=== PATIENT | male | born 1970 | race Caucasian/White ===

== ENCOUNTER 2024-10-26 11:07 | Emergency (ER) | payer OTHER ==
--- OUTSIDE RECORDS SUMMARY | 2024-10-26 11:11 | XMS REPORT | Continuity of Care Document ---
Author Name Unknown Address [address] [place] [address] [facility] Address [address] [place] [address] Care Team Providers Care Blueprint Tracer Name Role Phone Tuyet Salvador Primary Care Physician [phone] Tuyet Salvador Attending Clinician [phone] Doctor Unassigned, [place] Attending Clinician U navailable TUYET ARMANDO Attending Clinician Unavailable Lab, Ang - Db Attending Clinician Unavailable Tuyet Salvador Attending Clinician [phone] NurseEdilberto Attending Clinician Unavailable Rajendra Miranda MD Attending Clinician [phone] RAJENDRA MIRANDA Attending Clinician Unavaila ble Laurie Bnoe Attending Clinician [phone] LAURIE NORRIS Attending Clinician Unavailjamila anaya [facility] Attending Clinician Unavailable YECENIA ROSE Attending Clinician Unavailable MIRZA CASTILLO Attending Clinician UnavailCARL Talbot Attending Clinician Unavailable TONY ACOSTA Admitting Clinician Unavailable Payers Payer Name Policy Type Policy Number Effective Date Expirati on Date Source [place] [id number] 2019 00:00:00 MEDICAID SSI PENDING PENDING 2019 00:00:00 Problems Condition Name Condition Details Condition Category Status Onset Date Resolution Date Last Treatment Date Treating Clinician Comments Source Decompensa ivone hepatic cirrhosis Decompensa ivone hepatic cirrhosis Disease Active 08-02 00:00: 00 [facility] Vision loss, bilateral Vision loss, bilateral Disease Active 08-02 00:00: 00 [facility] Gastrointe stinal hemorrhage , unspecifie d gastrointe stinal hemorrhage type Gastrointe stinal hemorrhage , unspecifie d gastrointe stinal hemorrhage type Disease Active 08-02 00:00: 00 [facility] Nutritiona l deficiency Nutritiona l deficiency Disease Active 08-02 00:00: 00 [facility] History of alcohol abuse History of alcohol abuse Disease Active 08-02 00:00: 00 [facility] Smoker Smoker Disease Active 08-02 00:00: 00 [facility] 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 Added automatic ally from request for surgery [id number] [facility] Obesity (BMI 30-39.9) Obesity (BMI 30-39.9) Disease Resolve d 2018-07 230 00:00: 00 2019-08-02 00:00:00 2019-08-02 14:49:49 [facility] Allergies, Adverse Reactions, Alerts Allergy Name Allergy Type Status Severity Reaction(s) Onset Date Inactive Date Treating Clinician Comments Source FERROUS SULFATE DRUG INGREDI Active High ITCHING 03 00:00: 00 [facility] Ferrous Sulfate Propensi ty to adverse reaction s Active Itching 01-19 00:00: 00 [facility] SULFA (SULFONA MIDE ANTIBIOT ICS) Drug Class Active Rash 08-02 00:00: 00 [facility] Sulfa (Sulfona mide Antibiot ics) Propensi ty to adverse reaction s Active Rash 2020-0 1-14 00:00: 00 [facility] Sulfa (Sulfona mide Antibiot ics) Propensi ty to adverse reaction s Active Rash 2019-0 1-14 00:00: 00 [facility] Social History Social Habit Start Date Stop Date Quantity Comments Source Gender identity [facility] History of tobacco use Cigar Smoker [facility] History SDOH Alcohol Frequency [facility] History SDOH Alcohol Binge [facility] History SDOH Food Scarcity [facility] History SDOH Transport Non-Med [facility] History of Social function 2023-03-20 00:00:00 2023-03-20 00:00:00 [facility] Cigarettes smoked current (pack per day) - Reported 2023-03-20 00:00:00 2023-03-20 00:00:00 [facility] Cigarette pack-years 2023-03-20 00:00:00 2023-03-20 00:00:00 [facility] Tobacco use and exposure 2023-03-20 00:00:00 2023-03-20 00:00:00 Smokeless tobacco non-user [facility] Alcoholic beverage intake 2023-03-20 00:00:00 2023-03-20 00:00:00 .57 /d [facility] Tobacco Comment 2023-03-20 00:00:00 2023-03-20 00:00:00 20 cigars come in pack [facility] Exposure to SARS-CoV-2 (event) 2021-04-24 00:00:00 2021-05-24 09:09:00 Not sure [facility] Alcohol intake 2020-01-20 00:00:00 2020-01-20 00:00:00 .57 /d [facility] History SDOH Alcohol Std Drinks 2019-07-17 00:00:00 2019-07-17 00:00:00 2 [facility] Alcohol Comment 2019-07-17 00:00:00 2019-07-17 00:00:00 daily drinker [facility] History SDOH Food Worry 2019-07-17 00:00:00 2019-07-17 00:00:00 1 [facility] History SDOH Transport Med 2019-07-17 00:00:00 2019-07-17 00:00:00 2 [facility] Sex assigned at 1970 00:00:00 1970 00:00:00 [facility] Smoking Status Start Date Stop Date Source Smokes tobacco daily 2023-03-20 00:00:00 [facility] Medications Ordered Medication Name Filled Medication Name Start Date Stop Date Current Medication? Ordering Clinician Indication Dosage Frequency Signature (SIG) Comments Components Source foLIC acid 1 mg tablet 2020-07 00:00: 00 Yes [id number] 1mg Take 1 tablet by mouth daily. [facility] thiamine 100 mg tablet 2020-07 00:00: 00 Yes [id number] 100mg Take 1 tablet by mouth daily. [facility] pantoprazol e 40 mg EC tablet 2020-07 00:00: 00 Yes [id number] 40mg Take 1 tablet by mouth daily. [facility] MV,Ca,Min-I darvin-FA-Lyco pene (CENTRUM MEN) 8 mg iron- 200 mcg-600 mcg Tab 09-27 00:00: 00 Yes [id number] 1{tbl} Take 1 tablet by mouth daily. [facility] MV,Ca,Min-I darvin-FA-Lyco pene (CENTRUM MEN) 8 mg iron- 200 mcg-600 mcg Tab 09-27 00:00: 00 Yes [id number] 1{tbl} Take 1 tablet by mouth daily. [facility] foLIC acid 1 mg tablet 09-27 00:00: 00 04-23 00:00 :00 No [id number] 1mg Take 1 tablet by mouth daily. [facility] pantoprazol e 40 mg EC tablet 09-27 00:00: 00 04-23 00:00 :00 No [id number] 40mg Take 1 tablet by mouth daily. [facility] thiamine 100 mg tablet 09-27 00:00: 00 04-23 00:00 :00 No [id number] 100mg Take 1 tablet by mouth daily. [facility] furosemide 40 mg tablet 03-28 00:00: 00 04-23 00:00 :00 No [id number] 40mg Take 1 tablet by mouth daily. [facility] spironolact one 100 mg tablet 03-28 00:00: 00 04-23 00:00 :00 No [id number] 100mg Take 1 tablet by mouth daily. [facility] foLIC acid 1 mg tablet 01-30 00:00: 00 03-27 00:00 :00 No [id number] 1mg Take 1 tablet by mouth daily. [facility] furosemide 40 mg tablet 01-30 00:00: 00 03-27 00:00 :00 No [id number] 40mg Take 1 tablet by mouth daily. [facility] pantoprazol e 40 mg EC tablet 01-30 00:00: 00 03-27 00:00 :00 No [id number] 40mg Take 1 tablet by mouth daily. [facility] thiamine 100 mg tablet 01-30 00:00: 03-27 00:00 :00 No [id number] 100mg Take 1 tablet by mouth daily. [facility] spironolact one 100 mg tablet 01-30 00:00: 00 03-27 00:00 :00 No [id number] 100mg Take 1 tablet by mouth daily. [facility] MV,Ca,Min-I darvin-FA-[place] pene (CENTRUM MEN) 8 mg iron- 200 mcg-600 mcg Tab 1-28 00:00: 00 03-27 00:00 :00 No [id number] 1{tbl} Take 1 tablet by mouth daily. [facility] Immunizations Ordered Immunization Name Filled Immunization Name Date Status Comments Source HEP B, Adult Dosage 2021-05-24 00:00:00 Completed [facility] HEP B, Adult Dosage 2021-05-24 00:00:00 Completed [facility] HEP B, Adult Dosage 2021-05-24 00:00:00 Completed [facility] HEP B, Adult Dosage 2021-05-24 00:00:00 Completed [facility] HEP B, Adult Dosage 2021-05-24 00:00:00 Completed [facility] HEPLISAV HEP B, ADULT 2 DOSE, IM 2021-04-23 00:00:00 Completed [facility] HEPLISAV HEP B, ADULT 2 DOSE, IM 2021-04-23 00:00:00 Completed [facility] HEPLISAV HEP B, ADULT 2 DOSE, IM 2021-04-23 00:00:00 Completed [facility] HEPLISAV HEP B, ADULT 2 DOSE, IM 2021-04-23 00:00:00 Completed [facility] HEPLISAV HEP B, ADULT 2 DOSE, IM 2021-04-23 00:00:00 Completed [facility] HEPLISAV HEP B, ADULT 2 DOSE, IM 2021-04-23 00:00:00 Completed [facility] HEPLISAV HEP B, ADULT 2 DOSE, IM 2021-04-23 00:00:00 Completed [facility] SARS-COV-2 COVID-19 PFIZER VACCINE 2020-10-26 00:00:00 Completed [facility] SARS-COV-2 COVID-19 PFIZER VACCINE 2020-10-26 00:00:00 Completed [facility] SARS-COV-2 COVID-19 PFIZER VACCINE 2020-10-26 00:00:00 Completed [facility] SARS-COV-2 COVID-19 PFIZER VACCINE 2020-10-26 00:00:00 Completed [facility] SARS-COV-2 COVID-19 PFIZER VACCINE 2020-10-26 00:00:00 Completed [facility] SARS-COV-2 COVID-19 PFIZER VACCINE 2020-10-26 00:00:00 Completed [facility] SARS-COV-2 COVID-19 PFIZER VACCINE 2020-10-26 00:00:00 Completed [facility] SARS-COV-2 COVID-19 PFIZER VACCINE 2020-10-05 00:00:00 Completed [facility] SARS-COV-2 COVID-19 PFIZER VACCINE 2020-10-05 00:00:00 Completed [facility] SARS-COV-2 COVID-19 PFIZER VACCINE 2020-10-05 00:00:00 Completed [facility] SARS-COV-2 COVID-19 PFIZER VACCINE 2020-10-05 00:00:00 Completed [facility] SARS-COV-2 COVID-19 PFIZER VACCINE 2020-10-05 00:00:00 Completed [facility] SARS-COV-2 COVID-19 PFIZER VACCINE 2020-10-05 00:00:00 Completed [facility] SARS-COV-2 COVID-19 PFIZER VACCINE 2020-10-05 00:00:00 Completed [facility] HEPLISAV HEP B, ADULT 2 DOSE, IM 2020-01-20 00:00:00 Completed [facility] Hepatitis A Adult 2020-01-20 00:00:00 Completed [facility] HEPLISAV HEP B, ADULT 2 DOSE, IM 2020-01-20 00:00:00 Completed [facility] Hepatitis A Adult 2020-01-20 00:00:00 Completed [facility] HEPLISAV HEP B, ADULT 2 DOSE, IM 2020-01-20 00:00:00 Completed [facility] Hepatitis A Adult 2020-01-20 00:00:00 Completed [facility] HEPLISAV HEP B, ADULT 2 DOSE, IM 2020-01-20 00:00:00 Completed [facility] Hepatitis A Adult 2020-01-20 00:00:00 Completed [facility] HEPLISAV HEP B, ADULT 2 DOSE, IM 2020-01-20 00:00:00 Completed [facility] Hepatitis A Adult 2020-01-20 00:00:00 Completed [facility] HEPLISAV HEP B, ADULT 2 DOSE, IM 2020-01-20 00:00:00 Completed [facility] Hepatitis A Adult 2020-01-20 00:00:00 Completed [facility] HEPLISAV HEP B, ADULT 2 DOSE, IM 2020-01-20 00:00:00 Completed [facility] Hepatitis A Adult 2020-01-20 00:00:00 Completed Influenza Virus Vaccine Quad .5 mL IM 6+ MO 2019-07-22 00:00:00 Completed [facility] Pneumococcal Polysaccharide, PPSV23 (PNEUMOVAX) 2019-07-22 00:00:00 Completed [facility] Hepatitis A Adult 2019-07-22 00:00:00 Completed [facility] TDAP (ADACEL) VACCINE 2019-07-22 00:00:00 Completed [facility] HEPLISAV HEP B, ADULT 2 DOSE, IM 2019-07-22 00:00:00 Completed [facility] Influenza Virus Vaccine Quad .5 mL IM 6+ MO 2019-07-22 00:00:00 Completed [facility] Pneumococcal Polysaccharide, PPSV23 (PNEUMOVAX) 2019-07-22 00:00:00 Completed [facility] Hepatitis A Adult 2019-07-22 00:00:00 Completed [facility] TDAP (ADACEL) VACCINE 2019-07-22 00:00:00 Completed [facility] HEPLISAV HEP B, ADULT 2 DOSE, IM 2019-07-22 00:00:00 Completed [facility] Influenza Virus Vaccine Quad .5 mL IM 6+ MO 2019-07-22 00:00:00 Completed [facility] Pneumococcal Polysaccharide, PPSV23 (PNEUMOVAX) 2019-07-22 00:00:00 Completed [facility] Hepatitis A Adult 2019-07-22 00:00:00 Completed [facility] TDAP (ADACEL) VACCINE 2019-07-22 00:00:00 Completed [facility] HEPLISAV HEP B, ADULT 2 DOSE, IM 2019-07-22 00:00:00 Completed [facility] Influenza Virus Vaccine Quad .5 mL IM 6+ MO (FLUZONE/FLULAVAL/F LUARIX) 2019-07-22 00:00:00 Completed [facility] Pneumococcal Polysaccharide, PPSV23 (PNEUMOVAX) 2019-07-22 00:00:00 Completed [facility] Hepatitis A Adult 2019-07-22 00:00:00 Completed [facility] TDAP (ADACEL) VACCINE 2019-07-22 00:00:00 Completed [facility] HEPLISAV HEP B, ADULT 2 DOSE, IM 2019-07-22 00:00:00 Completed [facility] Influenza Virus Vaccine Quad .5 mL IM 6+ MO (FLUZONE/FLULAVAL/F LUARIX) 2019-07-22 00:00:00 Completed [facility] Pneumococcal Polysaccharide, PPSV23 (PNEUMOVAX) 2019-07-22 00:00:00 Completed [facility] Hepatitis A Adult 2019-07-22 00:00:00 Completed [facility] TDAP (ADACEL) VACCINE 2019-07-22 00:00:00 Completed [facility] HEPLISAV HEP B, ADULT 2 DOSE, IM 2019-07-22 00:00:00 Completed [facility] Influenza Virus Vaccine Quad .5 mL IM 6+ MO (FLUZONE/FLULAVAL/F LUARIX) 2019-07-22 00:00:00 Completed [facility] Pneumococcal Polysaccharide, PPSV23 (PNEUMOVAX) 2019-07-22 00:00:00 Completed [facility] Hepatitis A Adult 2019-07-22 00:00:00 Completed [facility] TDAP (ADACEL) VACCINE 2019-07-22 00:00:00 Completed [facility] HEPLISAV HEP B, ADULT 2 DOSE, IM 2019-07-22 00:00:00 Completed [facility] Influenza Virus Vaccine Quad .5 mL IM 6+ MO (FLUZONE/FLULAVAL/F LUARIX) 2019-07-22 00:00:00 Completed [facility] Pneumococcal Polysaccharide, PPSV23 (PNEUMOVAX) 2019-07-22 00:00:00 Completed Hepatitis A Adult 2019-07-22 00:00:00 Completed TDAP (ADACEL) VACCINE 2019-07-22 00:00:00 Completed HEPLISAV HEP B, ADULT 2 DOSE, IM 2019-07-22 00:00:00 Completed Influenza Virus Vaccine Quad .5 mL IM 6+ MO (FLUZONE/FLULAVAL/F LUARIX) Unknown Completed [facility] Pneumococcal Polysaccharide, PPSV23 (PNEUMOVAX) Unknown Completed [facility] Hepatitis A Adult Unknown Completed [facility] TDAP (ADACEL) VACCINE Unknown Completed [facility] HEPLISAV HEP B, ADULT 2 DOSE, IM Unknown Completed [facility] HEPLISAV HEP B, ADULT 2 DOSE, IM Unknown Completed [facility] SARS-COV-2 COVID-19 PFIZER VACCINE Unknown Completed [facility] Influenza Virus Vaccine Quad .5 mL IM 6+ MO (FLUZONE/FLULAVAL/F LUARIX) Unknown Completed [facility] Pneumococcal Polysaccharide, PPSV23 (PNEUMOVAX) Unknown Completed [facility]atitis A Adult Unknown [facility] Unknown Completed [facility] HEPLISAV HEP B, ADULT 2 DOSE, IM Unknown Completed [facility] HEPLISAV HEP B, ADULT 2 DOSE, IM Unknown Completed [facility] SARS-COV-2 COVID-19 PFIZER VACCINE Unknown Completed [facility] Influenza Virus Vaccine Quad .5 mL IM 6+ MO (FLUZONE/FLULAVAL/F LUARIX) Unknown Completed [facility] Pneumococcal Polysaccharide, PPSV23 (PNEUMOVAX) Unknown Completed [facility] Hepatitis A Adult Unknown [facility] (AD[facility]EL) VACCINE Unknown Completed [facility] HEPLISAV HEP B, ADULT 2 DOSE, IM Unknown Completed [facility] HEPLISAV HEP B, ADULT 2 DOSE, IM Unknown Completed [facility] SARS-COV-2 COVID-19 PFIZER VACCINE Unknown Completed [facility] Influenza Virus Vaccine Quad .5 mL IM 6+ MO (FLUZONE/FLULAVAL/F LUARIX) Unknown Completed [facility] Pneumococcal Polysaccharide, PPSV23 (PNEUMOVAX) Unknown Completed [facility] Hepatitis A Adult Unknown Completed Un [facility] TDAP (ADACEL) VACCINE Unknown Completed [facility] HEPLISAV HEP B, ADULT 2 DOSE, IM Unknown Completed [facility] HEPLISAV HEP B, ADULT 2 DOSE, IM Unknown Completed [facility] SARS-COV-2 COVID-19 PFIZER VACCINE Unknown Completed [facility] Influenza Virus Vaccine Quad .5 mL IM 6+ MO (FLUZONE/FLULAVAL/F LUARIX) Unknown Completed [facility] Pneumococcal Polysaccharide, PPSV23 (PNEUMOVAX) Unknown Completed [facility] Hepatitis A Adult Unknown [facility] (ADACEL) VACCINE Unknown Completed [facility] HEPLISAV HEP B, ADULT 2 DOSE, IM Unknown Completed [facility] HEPLISAV HEP B, ADULT 2 DOSE, IM Unknown Completed [facility] Influenza Virus Vaccine Quad .5 mL IM 6+ MO (FLUZONE/FLULAVAL/F LUARIX) Unknown Completed [facility] Pneumococcal Polysaccharide, PPSV23 (PNEUMOVAX) Unknown Completed [facility] Hepatitis A Adult Unknown Completed [facility] TDAP (ADACEL) VACCINE Unknown Completed [facility] HEPLISAV HEP B, ADULT 2 DOSE, IM Unknown Completed [facility] HEPLISAV HEP B, ADULT 2 DOSE, IM Unknown Completed [facility] Vital Signs Vital Name Observation Time Observation Value Comments S ource Systolic blood pressure 2023-03-20 15:02:00 130 mm[Hg] [facility] Diastolic blood pressure 2023-03-20 15:02:00 74 mm[Hg] [facility] Heart rate 2023-03-20 15:01:00 92 /min [facility] Respiratory rate 2023-03-20 15:01:00 18 /min [facility] Body height 2023-03-20 15:01:00 177.8 cm [facility] Body weight 2023-03-20 15:01:00 84.369 kg [facility] BMI 2023-03-20 15:01:00 26.69 kg/m2 [facility] Oxygen saturation in Arterial blood by Pulse oximetry 2023-03-20 15:01:00 96 /min [facility] Systolic blood pressure 2021-04-23 18:42:00 137 mm[Hg] [facility] Diastolic blood pressure 2021-04-23 18:42:00 80 mm[Hg] [facility] Heart rate 2021-04-23 18:42:00 94 /min [facility] Body temperature 2021-04-23 18:42:00 36.11 Kathleen [facility] Body height 2021-04-23 18:42:00 177.8 cm [facility] Body weight 2021-04-23 18:42:00 84.823 kg [facility] BMI 2021-04-23 18:42:00 26.83 kg/m2 [facility] Procedures Procedure Date / Time Performed Performing Clinicia n Source HEPATITIS B VACCINE,ADULT,IM 2021-05-24 14:48:07 Rajendra Miranda [facility] US ABDOMEN LIMITED 2021-05-08 14:53:28 Jane Norris [facility] HEPLISAV HEP B VACCINE,ADULT 2 DOSE,IM 2021-04-23 18:59:58 Laurie Norris [facility] Encounters Start Date/Time End Date/Time Encounter Type Admission Type Attending Clinicians Care Facility Care Department Encounter ID Source 2024-08-17 00:00:00 2024-08-22 13:29:27 Telephone Tuyet Armando [facility] [id number] [id number] [facility] 2023-04-01 00:00:00 2023-04-01 00:00:00 Patient Secure Msg Doctor Unassigned, [place] [facility] [id number] [id number] [id number] [id number] [facility] 2023-03-27 08:15:00 2023-03-27 08:55:28 Outpatient R TUYET ARMANDO [facility] [id number] [facility] 2023-03-27 08:15:00 2023-03-27 08:30:00 Lint Cleaner Visit Lab[facility] [id number] [id number] [id number] [facility] 2023-03-20 10:00:00 2023-03-20 10:37:23 Outpatient R TUYET ARMANDO [facility] [id number] [facility] 2023-03-20 10:00:00 2023-03-20 10:37:23 Office Visit Jasmyn Armandothia [facility] 1.84.114 [id number] 4.2.7.2.686 [id number] [facility] 2021-05-24 09:09:53 2021-05-24 09:29:53 Nurse Visit Nurse, Edilberto Donovan Rajendra Miranda [facility] 1.84.114 [id number] 4.2.7.2.686 [id number] [facility] 2021-05-24 09:00:00 2021-05-24 09:00:00 Outpatient RAJENDRA HARVEY [facility] [id number] [facility] 2021-05-23 00:00:00 2021-05-23 00:00:00 Patient Secure Rajendra Ovalle [facility] 1.84.114 350.1.13.10 4.2.7.2.686 [id number] [facility] 2021-05-08 09:00:00 2021-05-08 23:59:00 Hospital Encounter Jr [facility] 1.84.114 [id number] 4.2.7.2.686 [id number] [facility] 2021-05-08 00:00:00 2021-05-08 00:00:00 Outpatient R JR [facility] [id number] [facility] 2021-05-08 00:00:00 2021-05-08 00:00:00 Patient Secure Msg Jr [facility] 1..114 350.1.13.10 4.2.7.2.686 [id number] [facility] 2021-04-24 00:00:00 2021-04-24 00:00:00 [facility] [id number] 350.1.13.10 4.2.7.2.686 [id number] [facility] 2021-04-23 14:12:12 2021-04-23 14:27:12 Lint Cleaner Visit [facility] [id number] 350.1.13.10 4.2.7.2.686 [id number] [facility] 2021-04-23 13:34:36 2021-04-23 14:04:36 Office Visit Jr [facility] [id number] 350.1.13.10 4.2.7.2.686 [id number] [facility] 2021-04-23 13:30:00 2021-04-23 13:30:00 Outpatient R LAURIE NORRIS [facility] [id number] [facility] 2021-02-18 00:00:00 2021-02-18 00:00:00 Patient Secure g Jr, [facility] [id number] 350.1.13.10 4.2.7.2.686 [id number] [facility] 2021-02-11 00:00:00 2021-02-11 00:00:00 Outpatient R JR LAURIE [facility] [id number] [facility] 2020-10-26 09:40:00 2020-10-26 09:40:00 Outpatient YECENIA ELIAS [facility] [id number] [facility] 2020-10-12 10:30:00 2020-10-12 10:30:00 Outpatient Adam NORRIS LAURIE [facility] [id number] [facility] 2020-10-05 09:40:00 2020-10-05 09:40:00 Outpatient [facility] [id number] [facility] 2020-07-30 00:00:00 2020-07-30 00:00:00 Outpatient Adam NORRIS [facility] [id number] [facility] [facility] 2020-07-27 00:00:00 2020-07-27 00:00:00 Patient Secure Msg Doctor Unassigned, [place] [facility] [id number] [facility] 2020-04-13 10:30:00 2020-04-13 10:30:00 Outpatient Adam [facility] [id number] [facility] 2020-03-28 13:45:00 2020-03-28 13:45:00 Outpatient MIRZA ZUNIGA [facility] [id number] [facility] 2020-03-21 00:00:00 2020-03-21 00:00:00 Outpatient RAJENDRA HARVEY [facility] [id number] [facility] 2020-03-19 10:15:00 2020-03-19 10:15:00 [id number] [facility] 2020-03-09 00:00:00 2020-03-09 00:00:00 Patient Secure Msg Doctor Unassigned, Buda [facility] [id number] [facility] 2020-01-31 00:00:00 2020-01-31 00:00:00 Outpatient Adam [facility] [id number] [facility] 2020-01-20 09:30:00 2020-01-20 09:30:00 Outpatient R LAURIE NOR[facility] [id number] [facility] 2020-01-03 08:00:00 2020-01-03 08:00:00 Outpatient R RAJENDRA MIRANDA [facility] [id number] [facility] 2019-09-02 15:30:00 2019-09-02 15:30:00 [facility] [id number] [facility] 2019-08-02 13:30:00 2019-08-02 14:17:24 [facility] [id number] [facility] 2019-07-16 16:30:49 2019-07-22 18:30:00 Inpatient CARL HAN [facility] [id number] [facility] Notes Date/Time Note Provider Source 2024-08-18 16:23:43 Spoke to patient sister and patient can not walk and they are in the process of talking with Hospice to see what they can do and will call us back if they need to make appointment. SSA Moreno [facility] 2024-08-17 15:51:25 Jigar Steve is a 53 year old male and is calling for a telehealth visit. Pt would like to discuss hip and leg cramps and hospice orders. Would like a call back please to schedule. SSA Parker [facility] 2023-03-27 08:15:00 Formatting of this n ote is different from the original. Images from the original note were not included. Venipuncture collection performed by clean technique on the right anticubitus. Total of 1 attempts were made. Slight pressure and a bandage/dressing were applied to the site(s). The patient experienced no complications. The following specimens were processed according to instructions and sent to [facility] laboratories per lab order on 03/27/2023 : LT BLUE SST 1 RED LAV 1 PPT DK GREEN (LiHep) DK GREEN (SodH) BESS DK BLUE (K2) DK BLUE (S) ACD Blood Culture NIPT/NTD [facility]
[2024-10-26] MEDS ORDERED: NA CHLORIDE 0.9% 1,000 ML ONE (11:53)
[2024-10-26 12:08] LABS: Absolute Lymphocytes (CBC) 0.8 K/uL (0.7-4.9); Absolute Monocytes 0.6 K/uL (0.1-1.3); Absolute Neutrophil 5.8 K/uL (1.8-8.0); Basophils % 0.3 % (0-1.3); Eosinophils % 0.3 % (0-4.4); Hemoglobin 13.9 g/dL (13.6-17.9); Lymphocytes % 11.2 % (15.3-44.8); MCH 28.4 pg (27.0-35.0); MCHC 34.8 g/dL (32.0-36.0); MCV 81.8 fL (80-100); MPV 6.3 fL (7.6-11.3); Monocytes % 7.9 % (3.3-12.3); Neutrophils % 80.3 % (41.7-73.7); Platelets 191 thou/uL (152-406); RBC Red Blood Cell Count 4.88 M/uL (4.33-5.43); Red Cell Distribution Width 14.4 % (12.1-15.2)
[2024-10-26 12:27] LABS: Albumin 3.4 g/dL (3.4-5.0); Albumin/Globulin Ratio 0.8 (1.1-1.8); Anion Gap 9.3 mEq/L (5.0-15.0); Bilirubin Total 0.8 mg/dL (0.2-1.0); Globulin 4.4 g/dL (2.3-3.5); Potassium 3.3 mEq/L (3.5-5.1); Protein, Total 7.8 g/dL (6.4-8.2)
[2024-10-26 12:37] LABS: PT Prothrombin Time 13.3 SECONDS (10-13.0); PTT, Activated Partial Thromb 29.2 SECONDS (27.2-37.4); Protime INR 1.18
[2024-10-26 12:50] LABS: Specific Gravity 1.009 (1.005-1.030); Urine Bilirubin NEGATIVE (Negative); Urine Blood Negative (Negative); Urine Clarity Clear (Clear); Urine Color Light-Yellow (Yellow); Urine Glucose NEGATIVE (Negative); Urine Ketones 1+ (Negative); Urine Microscopic Reflex YN NO UMIC; Urine Nitrite NEGATIVE (Negative); Urine Protein NEGATIVE (Negative); Urine Urobilinogen Normal (Normal)
[2024-10-26] MEDS ORDERED: MORPHINE 4 MG/ML SYR ONE (12:56)
--- NOTE | 2024-10-26 16:24 | RAD REPORT ---
EXAMINATION: CT Abdomen Pelvis W Contrast CLINICAL INDICATION: Male, 54 years old. back pain, elevated LFTs TECHNIQUE: CT abdomen and pelvis was performed, after the administration of IV contrast, as per [facility] protocol. Axial, sagittal and coronal reconstructions were obtained. One or more of the following dose reduction techniques were used: Automated exposure control, adjustment of the mA and k V according to patient size, and iterative reconstruction. Unless otherwise specified, incidental findings do not require dedicated imaging follow-up. COMPARISON: No prior exam. FINDINGS: LOWER CHEST: Elongated right lung 1.5 cm nodule, alignment to the major fissure, completely included on this exam. LIVER: Nodular contour with multiple heterogeneous masses with central hypoattenuation, may reflect c entral necrosis, largest involving the inferior right lobe measuring 8.6 x 9.3 cm. BILIARY SYSTEM: No suspicious abnormalities. SPLEEN: Normal size. No focal lesion. PANCREAS: No mass, ductal dilation, or kailash-pancreatic fluid. ADRENALS: Normal; no mass. KIDNEYS: Normal size and contour. No hydronephrosis. URINARY BLADDER: Unremarkable. Mild prostatomegaly, not well evaluated.. GASTROINTESTINAL TRACT: No evidence of free air, bowel obstruction or abscess. Nonspecific thickenin g along the lower rectum. Mild free pelvic fluid. APPENDIX: Normal appendix. LYMPH NODES: Bulky epigastric and upper retroperitoneal lymph nodes largest at the upper aortocaval s pace, measuring 2.8 x 2.0 cm. MUSCULOSKELETAL: Expansile lytic lesion of the right ninth rib, measuring 6.5 x 3.2 cm in greatest ax ial dimensions. Other mixed lytic and sclerotic lesions of the vertebral bodies of L3 and L4, with extraosseous components extending bilaterally at L3, and asymmetrically on the right at L4, involving the transverse processes. There is probable involvement of the spinal canal opposite L3, as well as the left L2-3 and L3-4 neural foramina, not well evaluated. Multiple other lytic lesions involving the pelvic bones, largest traversing the right SI joint, measuring 4.5 x 3.5 cm with extraosseous extension inferiorly, and another notable lytic lesion involving the ischial tuberosity with extraoss eous extension. A heterogeneous lytic lesion involves the anterior left femoral head ADDITIONAL FINDINGS: None. IMPRESSION: Nodular contour of the liver with heterogeneous conglomerate masses within the right lobe, could repr esent primary hepatic malignancy or metastatic disease. Numerous osseous lytic metastatic lesions as above. There is possible involvement of the spinal canal and neural foramina centered at L3, for which evaluation with contrast-enhanced lumbar spine MRI would be helpful for additional characterization. This should also include the right sacral ala if cl inically indicated, given probable involvement of some of the right sacral neural foramina. Incompletely imaged right lung perifissural 1.5 cm nodule, could be metastatic nature as well.
--- NOTE | 2024-10-26 16:59 | RAD REPORT ---
EXAMINATION: MRI LUMBAR SPINE WITH & WITHOUT CONTRAST CLINICAL INDICATION: Male, 54 years old. Lumbar back pain, left leg numbness and weakness. Tachycardia TECHNIQUE: Multiplanar multisequence MR images were obtained of the lumbar spine before and after int ravenous administration of 15mL MultiHance. Unless otherwise specified, incidental findings do not require dedicated imaging follow-up. COMPARISON: CT abdomen and pelvis of the same day FINDINGS: For purposes of this dictation, it is assumed that there are 5 non rib-bearing lumbar type vertebrae, and the most caudal fully segmented lumbar vertebra is labeled L5. ALIGNMENT: The lumbar spine has normal alignment. BONE: Vertebral bodies are normal in height. Heterogeneous T2 hyperintense lytic lesions replacing no rmal fatty marrow signal at the L1, L3, and L4, sparing the right aspect of right L1 vertebral body. Similar masses involve S1, S2, and included S3 vertebral bodies. Involvement of the left L1 tra nsverse process, bilateral L3 posterior elements including the transverse processes, and the facet articulations, with extraosseous extension more so along the left transverse process, as well as the bilateral L4 pedicles and right more than left transverse processes. CORD: No abnormal signal in the cord. The conus medullaris terminates at a normal level. The nerve ro ots of the cauda equina appear normal. SOFT TISSUE: Extraosseous extension of the described lesions, results in effacement of the left later al recess opposite L1, with nodular enhancing soft tissue thickening along the left ventrolateral epidural space up to 6 mm in thickness, without neural foraminal encroachment. Masslike near circumfe rential nodular soft tissue thickening opposite L3 results in severe central canal stenosis, with soft tissue thickening measuring up to 9 mm along the anterior epidural space bilaterally. Nodular as ymmetric predominantly ventral epidural soft tissue thickening opposite L4, measuring up to 8 mm in thickness. There is extension of enhancing soft tissue opacifying the left L2-3 and L3-4 as well as u pper L4-5 neural foramina, as well as right L3-4, lower L2-3, and upper L4-5 neural foramina. Nodular asymmetric bilateral extraosseous mass at L3 level, extending within the psoas muscles bilate rally, measuring up to 1.7 cm in thickness on the left, and 1.3 cm in thickness on the right. Asymmetric extraosseous extension on the right at L4 level, measuring up to 2.2 cm in thickness on th e right, and 7 mm in thickness on the left. Enhancing heterogeneous right sacral ala mass with central necrotic changes, with extraosseous extension encroaching upon the right S2-3 and probably ri ght S3-4 neural foramina. EVALUATION OF THE INDIVIDUAL LEVELS: L1-2: Unremarkable. L2-3: Encroachment upon lower right neural foramen and complete opacification of the left neural fora men by ongoing soft tissue abnormalities as above. Mild to moderate overall central canal effacement with asymmetric left lateral recess effacement. L3-4: Severe central canal effacement. Encroachment upon the bilateral neural foramina by ongoing sof t tissue abnormalities. L4-5: No significant central canal effacement. Encroachment upon the upper neural foramina by ongoing soft tissue abnormalities. L5-S1: Mild posterior disc bulge and facet changes contributing to mild left more than right neural f oraminal narrowing. IMPRESSION: Multiple osseous lytic lesions involving L1, L3, L4, and the upper 3 sacral bodies, as well as the ri ght more than left sacral ala and left iliac crest. Extraosseous extensions, most notably at L3, L4, and along the right sacral ala, contributing to encr oachment upon the left L2-3 and L3-4, and upper L4-5 neural foramina, as well as right L3-4, lower L2-3, and upper L4-5 neural foramina. There is also malignant soft tissue encroachment upon the right S2-3 and S3-4 neural foramina. Epidural soft tissue thickening results in mild to moderate central canal effacement at L2-3 with asymmetric left lateral recess effacement, and severe central canal eff acement opposite L3. Other findings as detailed above. THIS REPORT CONTAINS FINDINGS THAT MAY BE CRITICAL TO PATIENT CARE. The findings were verbally commun icated via telephone to Morgan Alejo M.D. on 10/26/2024 4:55 PM.
[2024-10-26] MEDS ORDERED: HYDROMORPHONE HCL 1 MG/ML INJ ONE (17:28)
--- NOTE | 2024-10-26 18:10 | ER ---
Nurse's Notes [facility] Name: Jigar Steve Age: 54 yrs Sex: Male : 1970 Arrival Date: 10/26/2024 Time: 11:07 Bed 17 Private MD: Diagnosis: Metastatic cancer;Back pain Presentation: 10/26 11:17 Chief complaint: Patient states: Back pain, chronic 3+ months. Coronavirus screen: ll1 Client denies travel out of the [place] in the last 14 days. At this time, the client does not indicate any symptoms associated with coronavirus-19. Ebola Screen: Patient denies travel to an Ebola-affected area in the 21 days before illness onset. Initial Sepsis Screen: Does the patient meet any 2 criteria? No. Patient's initial sepsis screen is negative. Does the patient have a suspected source of infection? No. Patient's initial sepsis screen is negative. Risk Assessment: Do you want to hurt yourself or someone else? Patient reports no desire to harm self or others. Onset of symptoms was August 20, 2024. 11:17 Method Of Arrival: EMS 1 11:17 Acuity: ECHO 3 ll1 11:18 Chief complaint: EMS states: 18 R AC, 400 ml total bolus. HR was 155, down to 120's ll1 with IV fluid. 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 Triage Assessment: 11:18 General: Appears uncomfortable, Behavior is calm, cooperative, appropriate for age. ll1 Pain: Complains of pain in back. Musculoskeletal: Reports pain in back. 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 - Infectious Disease History:: Denies. - Social history:: Smoking status: unknown. Screenin:15 [facility] ED Fall Risk Assessment (Adult) History of falling in the last 3 months, jl7 including since admission No falls in past 3 months (0 pts) Confusion or Disorientation No (0 pts) Intoxicated or Sedated No (0 pts) Impaired Gait Yes (1 pt) Mobility Assist Device Used Yes (1 pt) Altered Elimination No (0 pt) Score/Fall Risk Level 0 - 2 = Low Risk Maintained a safe environment, Hourly rounding (assess needs \T\ fall precautionary measures) done. Abuse screen: Denies threats or abuse. Denies injuries from another. Nutritional screening: No deficits noted. Tuberculosis screening: No symptoms or risk factors identified. Assessment: 12:14 Reassessment: No changes from previously documented assessment. Patient and/or family ll1 updated on plan of care and expected duration. Pain level reassessed. Patient is alert, oriented x 3, equal unlabored respirations, skin warm/dry/pink. 12:22 Reassessment: No changes from previously documented assessment. Patient and/or family kj2 updated on plan of care and expected duration. Pain level reassessed. 13:30 Reassessment: Patient appears in no apparent distress at this time. Patient and/or kj2 family updated on plan of care and expected duration. Pain level reassessed. Patient is alert, oriented x 3, equal unlabored respirations, skin warm/dry/pink. General: Appears in no apparent distress. Behavior is calm, cooperative. 16:00 Reassessment: patient returned from MRI. kj2 16:00 Reassessment: Patient appears in no apparent distress at this time. Patient and/or kj2 family updated on plan of care and expected duration. Pain level reassessed. Patient is alert, oriented x 3, equal unlabored respirations, skin warm/dry/pink. 17:00 Reassessment: Patient appears in no apparent distress at this time. Patient and/or jl7 family updated on plan of care and expected duration. Pain level reassessed. Patient is alert, oriented x 3, equal unlabored respirations, skin warm/dry/pink. 18:00 Reassessment: Patient appears in no apparent distress at this time. Patient and/or jl7 family updated on plan of care and expected duration. Pain level reassessed. Patient is alert, oriented x 3, equal unlabored respirations, skin warm/dry/pink. 19:01 Reassessment: patient is discharged, awaiting EMS transportation. jl7 19:14 Reassessment: [facility] arrived to transport patient home. jl7 Vital Signs: 11:22 BP 186 / 101; Pulse 133; Resp 18; Temp 98; Pulse Ox 98% ; Weight 68.04 kg; Height 5 ft. jl7 10 in. ; Pain 10/10; 12:14 BP 181 / 119; Pulse 120; Resp 20; Pulse Ox 98% on R/A; ll1 13:30 BP 166 / 94; Pulse 124; Resp 20; Pulse Ox 100% on R/A; kj2 16:00 BP 160 / 91; Pulse 107; Resp 20; Pulse Ox 98% on R/A; kj2 17:00 BP 165 / 90; Pulse 105; Resp 20; Temp 98.4; Pulse Ox 98% on R/A; jl7 18:15 BP 165 / 92; Pulse 106; Resp 20; Temp 98.4; Pulse Ox 100% on R/A; jl7 11:22 Body Mass Index 21.52 (68.04 kg, 177.8 cm) jl7 11:22 Pain Scale: Adult jl7 ED Course: 11:14 Patient arrived in ED. ll1 11:15 Morgan Alejo DO is Attending Physician. ms3 11:15 Arm band placed on. ll1 11:17 Triage completed. ll1 11:18 Maintain EMS IV. Dressing intact. Good blood return noted. Site clean \T\ dry. Gauge \T\ ll 1 site: 18 R AC. 12:10 Patient has correct armband on for positive identification. Bed in low position. Call kj2 light in reach. Adult w/ patient. Provided Education on: call light. 12:21 Melinda Almaraz, RN is Primary Nurse. kj2 12:38 Urinalysis w/ reflexes Sent. kj2 14:06 Repositioned patient. Cleaned of incontinence. Linen changed. kj2 14:48 CT Abd/Pelvis - IV Contrast Only In Process Unspecified. EDMS 15:09 Spine Lumbar W/Wo Cont In Process Unspecified. EDMS 19:02 No provider procedures requiring assistance completed. IV discontinued, intact, jl7 bleeding controlled, No redness/swelling at site. Pressure dressing applied. Administered Medications: 12:05 Drug: NS 0.9% IV (30 ml/kg) 30 ml/kg IV at bolus once; Sepsis Protocol; to be given as ll1 a bolus over 90 minutes Route: IV; Rate: bolus; Site: right antecubital; 19:15 Follow up: IV Status: Completed infusion; IV Intake: 1000ml jl7 13:00 Drug: morphine IVP or IV 4 mg IVP once over 4 mins Route: IVP; Infused Over: 4 mins; kj2 Site: right antecubital; 18:30 Follow up: Response: No adverse reaction jl7 17:32 Drug: HYDROmorphone IVP 1 mg IVP once Route: IVP; Site: right antecubital; kj2 18:30 Follow up: Response: No adverse reaction jl7 Medication: 19:03 VIS not applicable for this client. jl7 Intake: 19:15 IV: 1000ml; Total: 1000ml. jl7 Outcome: 18:09 Discharge ordered by ms3 19:02 Discharged to home jl7 19:02 Condition: stable 19:02 Discharge instructions given to patient, family, Instructed on discharge instructions, follow up and referral plans. Demonstrated understanding of instructions, follow-up care, 19:19 Patient left the ED. jl7 Signatures: Dispatcher [employer] EDJaelyn Mac RN RN jl7 Antonio Blankenship RN RN ll1 Morgan Alejo DO DO ms3 Melinda Almaraz RN RN kj2 Corrections: (The following items were deleted from the chart) 11:24 11:17 Chief complaint: Patient states: Back pain, chronic ll1 ll1 11:52 11:22 BP 186 / 101; Pulse 133bpm; Resp 18bpm; Pulse Ox 98%; Temp 98F; Pain 10, jl7 Adult; ll1 15:09 14:57 In radiology for Lumbar Spine Wo Con. EDMS EDMS
--- NOTE | 2024-10-26 18:10 | EDPHYS ---
Physician Documentation [facility] Name: Jigar Steve Age: 54 yrs Sex: Male : 1970 Arrival Date: 10/26/2024 Time: 11:07 Bed 17 Private MD: ED Physician Morgan Alejo HPI: 10/26 14:50 This 54 yrs old Male presents to ER via EMS with complaints of Low Back Pain. ms3 14:50 54-year-old male with past medical history of liver cirrhosis, chronic back pain ms3 presents to the emergency department for increasing back pain for 3 months. EMS notes patient's heart rate was 155 on arrival and decreased 230 after normal saline bolus. Patient states in January he was carrying a 2 gallon jug of water when he felt he injured his back worse. Patient states for the last 3 months he has been bedridden as his left leg went numb and is weak. Patient states he has not sought medical treatment for his conditions. Patient is complaining of severe lower back pain at this time.. 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 - Infectious Disease History:: Denies. - Social history:: Smoking status: unknown. ROS: 14:50 Constitutional: Negative for fever, and chills. Cardiovascular: Negative for chest ms3 pain, and palpitations. Respiratory: Negative for shortness of breath, cough, wheezing, and pleuritic chest pain, Abdomen/GI: Negative for abdominal pain, nausea, vomiting, diarrhea, and constipation, 14:50 Skin: Negative for injury, rash, and discoloration, 14:50 Back: Positive for Back pain, Exam: 14:20 ECG was reviewed by the Attending Physician. ms3 14:50 Constitutional: This is a well developed, well nourished patient who is awake, alert, ms3 and in no acute distress. Cardiovascular: Regular rate and rhythm with a normal S1 and S2. No gallops, murmurs, or rubs. Normal PMI, no JVD. No pulse deficits. Respiratory: Lungs have equal breath sounds bilaterally, clear to auscultation and percussion. No rales, rhonchi or wheezes noted. No increased work of breathing, no retractions or nasal flaring. Abdomen/GI: Soft, non-tender, with normal bowel sounds. No distension or tympany. No guarding or rebound. No evidence of tenderness throughout. Skin: Warm, dry with normal turgor. Normal color with no rashes, no lesions, and no evidence of cellulitis. 14:50 Back: pain, that is moderate, of the lumbar area, normal spinal alignment noted, CVA tenderness, is absent, vertebral tenderness, is appreciated at L3 and L4, muscle spasm, is appreciated in the left low back, Vital Signs: 11:22 BP 186 / 101; Pulse 133; Resp 18; Temp 98; Pulse Ox 98% ; Weight 68.04 kg; Height 5 ft. jl7 10 in. ; Pain 10/10; 12:14 BP 181 / 119; Pulse 120; Resp 20; Pulse Ox 98% on R/A; ll1 13:30 BP 166 / 94; Pulse 124; Resp 20; Pulse Ox 100% on R/A; kj2 16:00 BP 160 / 91; Pulse 107; Resp 20; Pulse Ox 98% on R/A; kj2 17:00 BP 165 / 90; Pulse 105; Resp 20; Temp 98.4; Pulse Ox 98% on R/A; jl7 18:15 BP 165 / 92; Pulse 106; Resp 20; Temp 98.4; Pulse Ox 100% on R/A; jl7 11:22 Body Mass Index 21.52 (68.04 kg, 177.8 cm) [facility] 11:22 Pain Scale: Adult jl7 MDM: 11:26 Medical Screening Exam initiated ms3 14:50 Differential diagnosis: arthritis, strain, fracture, contusion, Herniated disc Epidural ms3 abscess. 16:44 ED course: Discussed labs and CT results showing likely metastatic cancer with the ms3 patient and his sister, his power of tax associate attorney. Discussed treatment versus hospice and they will discuss while awaiting MRI results. 17:22 ED course: Discussed MRI results with patient and his sister Adelina and patient would ms3 like to be placed on hospice. He has been seen by [facility] hospice a month ago and was pending labs.. 21:58 Data reviewed: vital signs, nurses notes, lab test result(s). ms3 21:58 Consideration of Admission/Observation Escalation of care including ms3 admission/observation considered. Patient discharged on hospice. I considered the following discharge prescriptions or medication management in the emergency department Medications were administered in the Emergency Department. See MAR. Counseling: I had a detailed discussion with the patient and/or guardian regarding the historical points, exam findings, and any diagnostic results supporting the discharge/admit diagnosis, lab results, radiology results, the need for outpatient follow up, to return to the emergency department if symptoms worsen or persist or if there are any questions or concerns that arise at home. ED course: [facility] hospice called and they will follow-up with patient's family and patient tonight. All questions were answered. Return precautions discussed including worsening symptoms, or any concerns. End-of-life care discussion held. All questions were answered.. 10/26 11:34 Order name: Blood Culture Adult (2) ms3 10/26 11:34 Order name: CBC with Diff; Complete Time: 12:45 ms3 10/26 11:34 Order name: CMP; Complete Time: 12:45 ms3 10/26 11:34 Order name: Lactate w/ 2H reflex if indic.; Complete Time: 12:45 ms3 10/26 11:34 Order name: Protime (+inr); Complete Time: 12:45 ms3 10/26 11:34 Order name: Ptt, Activated; Complete Time: 12:45 ms3 10/26 11:35 Order name: Urinalysis w/ reflexes; Complete Time: 14:17 ms3 10/26 14:19 Order name: CT Abd/Pelvis - IV Contrast Only; Complete Time: 16:28 ms3 10/26 15:09 Order name: Spine Lumbar W/Wo Cont; Complete Time: 17:06 EDMS 10/26 11:34 Order name: EKG; Complete Time: 11:34 ms3 10/26 11:34 Order name: Accucheck; Complete Time: 12:13 ms3 10/26 11:34 Order name: Cardiac monitoring; Complete Time: 11:49 ms3 10/26 11:34 Order name: EKG - Nurse/Tech; Complete Time: 11:49 ms3 10/26 11:34 Order name: IV Saline Lock - Large Bore; Complete Time: 11:49 ms3 10/26 11:34 Order name: Labs collected and sent; Complete Time: 11:49 ms3 10/26 11:34 Order name: O2 Per Protocol; Complete Time: 11:42 ms3 10/26 11:34 Order name: O2 Sat Monitoring; Complete Time: 11:42 ms3 10/26 11:34 Order name: Vital Signs; Complete Time: 11:42 ms3 EC:20 Rate is 118 beats/min. Rhythm is regular. QRS [place] is Normal. MD interval is normal. ms3 QRS interval is normal. Clinical impression: Sinus tachycardia. Interpreted by me. Reviewed by me. Administered Medications: 12:05 Drug: NS 0.9% IV (30 ml/kg) 30 ml/kg IV at bolus once; Sepsis Protocol; to be given as ll1 a bolus over 90 minutes Route: IV; Rate: bolus; Site: right antecubital; 19:15 Follow up: IV Status: Completed infusion; IV Intake: 1000ml jl7 13:00 Drug: morphine IVP or IV 4 mg IVP once over 4 mins Route: IVP; Infused Over: 4 mins; kj2 Site: right antecubital; 18:30 Follow up: Response: No adverse reaction jl7 17:32 Drug: HYDROmorphone IVP 1 mg IVP once Route: IVP; Site: right antecubital; kj2 18:30 Follow up: Response: No adverse reaction jl7 Disposition Summary: 10/26/24 18:09 Discharge Ordered Notes: Location: Home ms3 Condition: Stable ms3 Diagnosis - Metastatic cancer ms3 - Back pain ms3 Followup: ms3 - With: Private Physician - When: Tomorrow - Reason: Discharge Instructions: - Discharge Summary Sheet ms3 - Managing Cancer Pain ms3 Forms: - Medication Reconciliation Form ms3 - Antibiotic Education ms3 - Prescription Opioid Use ms3 - Patient Portal Instructions ms3 - Leadership Thank You Letter ms3 Signatures: Dispatcher [employer] Jaelyn Adamson RN RN jl7 Antonio Blankenship RN RN ll1 Morgan Alejo DO DO ms3 Melinda Almaraz RN RN kj2 Corrections: (The following items were deleted from the chart) 11:35 11:34 BLOOD CULTURE*+BA.LAB.BRZ ordered. EDMS EDMS 11:35 11:34 CBC+H.LAB.BRZ ordered. EDMS EDMS 11:35 11:34 COMPREHENSIVE METABOLIC PANEL+C.LAB.BRZ ordered. EDMS EDMS 11:35 11:34 LACTATE+C.LAB.BRZ ordered. EDMS EDMS 11:35 11:34 PROTIME (+INR)+COAG.LAB.BRZ ordered. EDMS EDMS 11:35 11:34 PTT, ACTIVATED+COAG.LAB.BRZ ordered. EDMS EDMS 14:47 11:30 Spine Lumbar W/Cont ordered. EDMS EDMS 15:09 14:47 Lumbar Spine Wo Con ordered. EDMS EDMS
[2024-10-26 19:37] VITALS: TEMP 98.1
[2024-10-26 19:39] VITALS: BP 126/72; O2SAT 99
--- NOTE | 2024-10-27 11:49 | EKG ---
Test Date: 2024-10-26 Test Time: 11:46:34 Repair Cameraman: BELL MEASUREMENT RESULTS: Intervals: Rate: 118 AL: 156 QRSD: 84 QT: 338 QTc: 473 [place]: P: 79 AL: 156 QRS: 94 T: 36 INTERPRETIVE STATEMENTS: Sinus tachycardia Biatrial enlargement Abnormal ECG No previous ECG available for comparison Electronically Signed On 10-27-24 11:48:33 CDT by Kvng Dorsey
== END 2024-10-26 19:19 | disposition home or self-care (01) ==
LOC: ER 11:07
DX: C79.51 Secondary malignant neoplasm of bone (principal); K74.60 Unspecified cirrhosis of liver
CPT/HCPCS: 87040 ×2; 85025; 36415; 85610; 83605; 85730; 81003; 80053; 74177; 72158; Q9967; A9577; J1171; J7030; 93005